=== PATIENT | male | born 1975 | race Caucasian/White ===

== ENCOUNTER 2017-02-28 16:06 | Emergency (ER) | payer OTHER ==
--- NOTE | ~2017-02-28 | CR93 ---
[facility] A Service of [facility] & [facility] RADIOLOGY TEXT RESULTS PATIENT: JOHNSON BUNDY LOCATION: CFTX : 79 UNIT #: [id number] AGE: [address]: Kajal Li APRN SEX: M ORDER DR: [id number] [facility] [address] [place], [place] [address] [id number] MR#: [id number] Acc #: [id number] NAME: JOHNSON BUNDY : 1975 SEX: M STUDY DATE/TIME: 02/28/2017 16:47 UNIT: [facility] ROOM: STUDY DESCRIPTION: CR Elbow Min 3 Views Lt Attending Physician: Kajal Li A.P.R.N. Ordering Physician: Ed Yoandy Soler M.D. Primary Care Physician: Primary Care Physician No MEDICAL IMAGING REPORT This report is preliminary unless electronic signature is present EXAM Left elbow HISTORY Trauma hitting elbow on a metal railing 2 weeks ago with persistent pain. TECHNIQUE 3 views of the elbow were obtained. FINDINGS AP and lateral examination of the elbow shows satisfactory articulation of the humerus with the proximal radius and ulna. There is no identifiable fracture, dislocation, joint effusion, or radiopaque foreign body in the soft tissues. IMPRESSION Normal elbow. Dictated by... Mumtaz Tang M.D. THIS IS AN ELECTRONICALLY VERIFIED REPORT Mumtaz Tang M.D. at 03/01/2017 9:35 AM MARIO/ted TD: 02/28/2017 22:29 JOB #: [id number] MEDICAL IMAGING REPORT Page 1 of 1 COPY
[~2017-02-28 16:06] MED LIST: AMOXICILLIN500 M1 PO; PEN-VEE K PO; VICODIN 5/500 T1 TAB PO; VOLTAREN75 MG PO
== END 2017-02-28 17:43 | disposition home or self-care (01) ==
LOC: CED 16:06 → CFTX 16:06
DX: S50.02XA Contusion of left elbow, initial encounter (principal); F17.210 Nicotine dependence, cigarettes, uncomplicated; W22.8XXA Striking against or struck by other objects, initial encounter; Y92.009 Unspecified place in unspecified non-institutional (private) residence as the place of occurrence of the external cause
CPT/HCPCS: 29125; 73080; 99283